=== PATIENT | female | born 1975 | race Caucasian/White ===

== ENCOUNTER → 2021-08-03 | Day surgery (SDC) | payer OTHER ==
[~2021-08-03] VITALS: Ht 167.6 cm; Wt 79.4 kg
[~2021-08-03] MED LIST: FOLIC ACID1 MG PO; NAPROXEN500 MG PO; PERCOCET 5-3251 EACH PO; PHENTERMINE H37.5 M1 PO; TOPIRAMATE25 MG PO
[2021-08-03 08:16] LABS: HCG (URINE) SCREEN NEGATIVE (NEGATIVE)
[2021-08-03 09:09] LABS: HCT 42.4 % (37.0-47.0); HGB 13.7 g/dl (12.5-16.0); MCH 27.6 pg (25.0-31.0); MCHC 32.3 g/dL (32.0-36.0); MCV 85.3 fL (78.0-100.0); MPV 11.2 fL (6.0-9.5); RBC 4.97 M/uL (4.20-5.40); RDW 14.9 % (11.5-14.0)
== END | disposition home or self-care (01) ==
LOC: FAS 07:48
PROVIDERS: Obstetrics & Gynecology
DX: N84.0 Polyp of corpus uteri (principal); D64.9 Anemia, unspecified; J45.909 Unspecified asthma, uncomplicated; E66.9 Obesity, unspecified; Z91.012 Allergy to eggs
CPT/HCPCS: 36415; 84703; 86850; 86900; 86901; J1100; J1170; J1885; J2250; J2405; J2704; J3010; J7120